=== PATIENT | female | born 1985 | race Caucasian/White ===

== ENCOUNTER 2018-03-06 08:44 | Emergency (ER) | payer OTHER, SELFPAY ==
[2018-03-06 08:55] VITALS: BP 169/108; PULSE 68; RESP 24; TEMP 37.2; O2SAT 100
[2018-03-06 09:03] VITALS: BP 156/81; PULSE 63; RESP 20; O2SAT 100
[2018-03-06 09:31] LABS: Add Manual Diff / Slide Review NO; Basophils Percent Auto 0.5 % (0-2); Eosinophils Percent Auto 0.2 % (2-4); Hematocrit 37.2 % (36-46); Hemoglobin 12.7 g/dL (12.0-16.0); Lymphocytes Percent Auto 44.7 % (25-40); Mean Corpuscular HGB Conc 34.2 % (30-36); Mean Corpuscular Hemoglobin 30.6 PG (26-34); Mean Corpuscular Volume 89.5 fL (80-100); Monocytes Percent Auto 10.1 % (3-14); Neutrophils Absolute Auto 4200 /uL (3000-5900); Neutrophils Percent Auto 44.5 % (50-75); Platelet Count 232 X10^3/uL (150-400); Red Blood Cell Count 4.16 X10^6/uL (4.0-5.2); Red Cell Distribution Width 13.6 % (11.6-14.8); White Blood Cell Count 9.5 X10^3/uL (4.5-11.0)
[2018-03-06 09:32] VITALS: BP 144/95; PULSE 68
[2018-03-06 09:36] LABS: Alanine Aminotransferase 38 IU/L (9-52); Albumin Globulin Ratio 1.5 (1.0-2.8); Alkaline Phosphatase 42 U/L (38-126); Aspartate Aminotransferase 47 IU/L (14-36); BUN Creatinine Ratio 16.3 (6-22); Bilirubin Total 0.3 mg/dL (0.2-1.3); Blood Urea Nitrogen 13 mg/dL (7-17); Calcium 9.3 mg/dL (8.4-10.2); Carbon Dioxide 30 mmol/L (22-32); Chloride 104 mmol/L (98-107); Creatine Kinase 48 U/L (30-135); Estimated Glomerular Filt Rate > 60.0 mL/min (>60); Globulin 2.7 g/dL (1.7-4.1); Glucose 86 mg/dL (70-100); HEMOLYSIS < 15 (0-50); Sodium 141 mmol/L (137-145); Total Protein 6.7 g/dL (6.3-8.2)
[2018-03-06] MEDS: KETOROLAC 60 MG/2 ML VIAL 30 MG IV (09:39)
[2018-03-06] MEDS: SODIUM CHLORIDE 0.9% 1,000 ML 1000 ML IV (09:41)
--- NOTE | 2018-03-06 09:45 | ED_ITS ---
HPI - General Adult General Chief complaint: Hypertension Stated complaint: NEEDS EKG, HIGH BP, WALK IN SENT OVER Time Seen by Provider: 03/06/18 08:53 Source: patient Mode of arrival: ambulatory Limitations: no limitations History of Present Illness HPI narrative: Patient is a 33-year-old female who presents with elevated blood pressure. She states this morning she woke up she had a headache and some chest discomfort and overall did not feel well. No weakness blurry vision. No heart palpitations. She overall is feeling better. She has been monitoring her blood pressure. She brought a wrist cough and has been taking her blood pressure at least 3 times a day on in the morning before she goes to bed and sometime around lunch. She says it is consistently about 140/90. However this morning when she felt bad she noticed that it was 168/105. At which point she decided to come to the emergency department. Her blood pressure has now decreased significantly in is no 144/95. She still has a mild headache. She does have a history of migraines she says this really isn't bad. Related Data Previous Rx's Medication Instructions Recorded lisinopril 2.5 mg PO DAILY #30 tab 03/06/18 Allergies Allergy/AdvReac Type Severity Reaction Status Date / Time No Known Drug Allergies Allergy Verified 03/06/18 09:21 Review of Systems Review of Systems All systems reviewed & are unremarkable except as noted in HPI and below Constitutional Denies chills, Denies fever(s), Reports headache(s), Denies lethargy and Denies weakness Eyes Denies blurry vision, Denies change in vision and Denies diplopia ENT Ears, Nose, Mouth, and Throat: Reports headache(s) Cardiovascular Reports chest pain (Now resolved), Denies irregular heart rhythm, Denies lightheadedness, Denies palpitations, Denies dyspnea, Denies dyspnea on exertion and Denies orthopnea Respiratory Denies cough, Denies dyspnea, Denies dyspnea on exertion and Denies wheezing Musculoskeletal Denies back pain, Denies muscle weakness, Denies numbness and Denies tingling Integumentary/Breasts Denies pruritus, Denies erythema, Denies rash and Denies wounds Neurologic Reports headache(s), Denies numbness, Denies tingling and Denies weakness Endocrine Denies palpitations Allergic/Immunologic Denies wheezing PFSH Medical History Migraine (Acute) Family History Mother Hypertension Father Hypertension Social History Smoking Status: Never smoker Exam Initial Vital Signs Initial Vital Signs: Vital Signs Temperature 98.9 F 03/06/18 08:55 Pulse Rate 68 03/06/18 08:55 Respiratory Rate 24 03/06/18 08:55 Blood Pressure 169/108 H 03/06/18 08:55 Pulse Oximetry 100 03/06/18 08:55 GENERAL: Well-appearing, well-nourished and in no acute distress. HEENT: Head atraumatic,EOMI, pupils reactive, face symmetric, moist mucous membranes CARDIOVASCULAR: Regular rate and rhythm without murmurs, rubs or gallops. RESPIRATORY: Breath sounds equal bilaterally, no wheezes rales or rhonchi. ABDOMEN: Soft, nontender. Normoactive bowel sounds all 4 quadrants. No guarding or rebound. EXTREMITIES: Normal range of motion, no clubbing or edema. Neurovascularly intact NEUROLOGICAL: Alert and oriented x4.Normal gait and speech. Cranial nerves II through XII grossly intact. SKIN: Warm, dry, no laceration, no petechiae, no rashes or lesions. Course Orders Ordered: Discontinued Medications Sodium Chloride (Normal Saline 0.9%) 1,000 mls @ 1,000 mls/hr IV CONT ERIC Last Infusion: 03/06/18 10:34 Dose: 0 mls/hr Admin: 03/06/18 09:41 Dose: 1,000 mls/hr Ketorolac Tromethamine (Toradol) 30 mg IV NOW ONE Stop: 03/06/18 09:24 Last Admin: 03/06/18 09:39 Dose: 30 mg Vital Signs - 8 hr 03/06/18 11:09 03/06/18 11:18 Pulse Rate 78 Respiratory Rate 14 Blood Pressure [Right Arm] 132/88 H 132/88 H Pulse Oximetry 100 Medical Decision Making MDM Narrative Medical decision making narrative: Patient has had persistent home documentation of elevated blood pressure. She has a strong family history of hypertension. She cannot get into a new primary care provider in till June. I have written her for a month's worth of blood pressure medication. Recommended continuing monitoring her home blood pressure. Also discussed warning signs of lisinopril including angioedema. I discussed all findings with the patient. Education has been performed regarding treatment plan, diagnosis, warning signs and symptoms and all concerns have been addressed. Verbally agree with and understood all of the above. Lab Data Result diagrams: 03/06/18 09:05 03/06/18 09:05 Lab Results 03/06/18 03/06/18 Range/Units 09:05 09:05 WBC 9.5 (4.5-11.0) X10^3/uL RBC 4.16 (4.0-5.2) X10^6/uL Hgb 12.7 (12.0-16.0) g/dL Hct 37.2 (36-46) % MCV 89.5 (80-100) fL MCH 30.6 (26-34) PG MCHC 34.2 (30-36) % RDW 13.6 (11.6-14.8) % Plt Count 232 (150-400) X10^3/uL Neut % (Auto) 44.5 L (50-75) % Lymph % (Auto) 44.7 H (25-40) % [place] % (Auto) 10.1 (3-14) % Eos % (Auto) 0.2 L (2-4) % Baso % (Auto) 0.5 (0-2) % Neut # (Auto) 4200 (2123-6794) /uL Sodium 141 (137-145) mmol/L Potassium 4.0 (3.4-5.1) mmol/L Chloride 104 (98-107) mmol/L Carbon Dioxide 30 (22-32) mmol/L BUN 13 (7-17) mg/dL Creatinine 0.80 (0.52-1.04) mg/dL Estimated GFR > 60.0 (>60) mL/min BUN/Creatinine Ratio 16.3 (6-22) Glucose 86 (70-100) mg/dL Calcium 9.3 (8.4-10.2) mg/dL Total Bilirubin 0.3 (0.2-1.3) mg/dL AST 47 H (14-36) IU/L ALT 38 (9-52) IU/L Alkaline Phosphatase 42 (38-126) U/L Total Creatine Kinase 48 (30-135) U/L Troponin I < 0.012 (0.01-0.034) ng/mL Total Protein 6.7 (6.3-8.2) g/dL Albumin 4.0 (3.5-5.0) g/dL Globulin 2.7 (1.7-4.1) g/dL Albumin/Globulin Ratio 1.5 (1.0-2.8) ECG Data Attestation: I personally reviewed and interpreted this ECG as follows: Prior ECG tracings: not available for review Interpretation: Normal sinus rate [address] changes [place] interval 116 QRS 88 QTC 395 Discharge Plan Departure Patient Disposition: Home Clinical Impression: Hypertension Discharge Date/Time: 03/06/18 11:19 Interventions: ED Discharge Assessment Last Done: 03/06/18 11:18 Instructions: DI for High Blood Pressure Activity Restrictions/Additional Instructions: *You have been diagnosed with elevated blood pressure *What to do: Continue to monitor blood pressure once a day and record, *Continue to take medications as directed Lisinopril 2.5 mg once a day has been faxed to [facility] in an according *Follow up with your primary care provider in 2-3 days, primary care provider will need to follow and monitor blood pressure *Return to ER if you should have headache, chest pain heart palpitation, lip swelling, tongue swelling or any new, worsening or concerning symptoms Prescriptions: New lisinopril 2.5 mg tablet 2.5 mg PO DAILY Qty: 30 RF: 0 Referrals: Dell Rausch MD [Primary Care Provider] -
--- NOTE | 2018-03-06 09:45 | PC.NURSE ---
Sent for further work up of noted higher blood pressures at walking. C/O mild headache. Neuro intact. No acute distress. Had h/o htn in that resolved after of son 10 months ago. Chambers / warm / dry. No acute distress.
[2018-03-06 09:50] LABS: Troponin I < 0.012 ng/mL (0.01-0.034)
[2018-03-06 10:33] VITALS: BP 170/93; PULSE 75; RESP 14; O2SAT 100
[2018-03-06 11:09] VITALS: BP 132/88; PULSE 78; RESP 14; O2SAT 100
[2018-03-06 11:18] VITALS: BP 132/88
== END 2018-03-06 11:19 | disposition home or self-care (01) ==
PROVIDERS: Emergency Provider Emergency Medicine; PCP Internal Medicine
DX: I10 Essential (primary) hypertension (principal)
CPT/HCPCS: 36591; 80053; 81025; 82550; 82553; 84484; 85025; 93005; 93010; 93041; 96361; 96374; 99284; 99285; J1885

== ENCOUNTER → 2018-07-06 15:13 | Outpatient (CLI) | payer OTHER, SELFPAY ==
--- NOTE | 2018-07-06 15:14 | DI.US.S_ITS ---
PROCEDURE: US RENAL COMPLETE INDICATIONS: hematuria. An additional history of frequent urination is also given by the patient. TECHNIQUE: Real-time scanning was performed of the kidneys and bladder, with image documentation. COMPARISON: None. FINDINGS: Kidneys: Kidneys are normal in size. Right kidney measures 11.3 cm long; left kidney measures 11.1 cm long. Right renal cortical thickness is 1.6 cm; left renal cortical thickness is 1.5 cm. Renal cortical echotexture is normal. No hydronephrosis or nephrolithiasis. No suspicious solid mass lesions. Bladder: Pre-void bladder volume is 219 mL. Post-void residual is 3 mL. Pre-void images demonstrate no intraluminal masses or stones. On pre-void images, both ureteral jets are noted with color Doppler interrogation. (Of note, ureteral jets may not be detectable in up to 25% of cases due to insufficient differences in specific gravity between ureteral and bladder urine). Miscellaneous: No free pelvic fluid. IMPRESSION: No significant ultrasound abnormality can be seen. No hydronephrosis. For further evaluation of the patient's presenting history of hematuria, please consider a dedicated hematuria protocol CT without and with contrast (assuming that there is no contraindication). Dictated by: David Dozier M.D. on 07/06/2018 at 15:08 Approved by: David Dozier M.D. on 07/06/2018 at 15:09
== END ==
PROVIDERS: PCP Internal Medicine; Visit Provider Physician Assistant
DX: R31.9 Hematuria, unspecified (principal)
CPT/HCPCS: 76770

== ENCOUNTER → 2018-08-23 11:44 | Outpatient (CLI) | payer OTHER, SELFPAY ==
--- NOTE | 2018-08-23 11:54 | DI.CT.S_ITS ---
PROCEDURE: CT ANGIO ABDOMEN INDICATIONS: ESSENTIAL HYPERTENSION TECHNIQUE: After the administration of intravenous contrast, 2.5 mm thick sections acquired from the diaphragm to the symphysis. 10 mm maximum-intensity projection (MIP) reformats were then acquired. For radiation dose reduction, the following was used: automated exposure control. COMPARISON: None. FINDINGS: Image quality: Excellent. Aorta: The aorta is normal in caliber. The caliber of the main arterial branches from the aorta are normal also. No atherosclerotic calcific plaquing is found. Mesenteric arteries: Celiac trunk, superior and inferior mesenteric arteries appear patent. Right pelvic arteries: Normal. Left pelvic arteries: Normal. Extravascular soft tissues: Lung bases are clear. Heart size is normal. Liver is normal in size and enhancement. Gallbladder normal. Biliary system is non dilated. Pancreas enhances normally. Spleen is normal in size and enhancement. No adrenal nodules. Kidneys are normal in size and enhancement, without hydronephrosis. Non opacified bowel loops are normal in wall thickness and caliber. No free fluid or air. No retroperitoneal or mesenteric adenopathy. No ventral hernias. No suspicious bony lesions. No vertebral body compression fractures. IMPRESSION: Source of hypertension is not found. No renal artery stenosis is found. No adrenal adenoma or retroperitoneal lesion suggestive of vasoactive tumor is found. Dictated by: Hoang Laird M.D. on 08/23/2018 at 13:33 Approved by: Hoang Laird M.D. on 08/23/2018 at 13:36
[2018-08-27 15:49] LABS: Total Volume: 2100 mL; Vanillymandelic Acid 24 Hr Ur 2.6 mg/24 h (< OR = 6.0)
== END ==
PROVIDERS: PCP Internal Medicine; Visit Provider Internal Medicine
DX: I10 Essential (primary) hypertension (principal)
CPT/HCPCS: 74175; 82382; 82570; 83835; 84585; Q9967